=== PATIENT | male | born 1970 | race Caucasian/White ===

== ENCOUNTER 2020-11-13 21:08 | Inpatient (IN) | payer OTHER ==
[~2020-11-13] VITALS: Ht 170.1 cm; Wt 122.6 kg
[~2020-11-13 21:08] MED LIST: ATARAX,VISTARIL50 MG PO; ATARAX25 MG PO; ATARAX50 MG PO; CIPRO500 MG PO; CIPROFLOXACIN500 MG PO; CLARITIN10 MG PO; DARVOCET A500 51 TAB PO; DAYPRO600 M1 PO; DESYREL100 MG PO; FLAGYL500 MG PO; FLEXERIL5 MG PO; MEDROL DOSEPAK4 MG PO; MS CONTIN30 MG PO; SEPTRA DS 800 M1 TAB PO; TRAZADONE HYDR100 MG PO; VICODIN 5/500 505 MG PO; VICODIN ES 7501 TAB PO; VOLTAREN50 M1 PO; XANAX1 MG PO; ZESTRIL5 MG PO; ZITHROMAX Z PA250 MG PO
[2020-11-13 21:15] VITALS: BP 169/94
[2020-11-13 21:54] LABS: BASO % 0.3 % (0.0-1.0); EOS # 0.3 10*3/uL (0.0-0.4); EOS % 2.9 % (1.0-4.0); HEMATOCRIT 45.6 % (42.0-52.0); LYMPH # 1.1 10*3/uL (1.3-4.4); LYMPH % 11.6 % (27.0-41.0); MEAN CELL VOLUME 88.7 fl (80.0-94.0); MEAN CORPUSCULAR HGB 27.4 pg (27.0-31.0); MEAN CORPUSCULAR HGB CONC 30.9 g/dl (33.0-37.0); MEAN PLATELET VOLUME 9.8 fl (9.6-12.3); MONO # 0.7 10*3/uL (0.1-1.0); MONO % 8.1 % (3.0-9.0); NEUT % 76.4 % (47.0-73.0); PLATELET COUNT AUTOMATED 221 10*3/uL (130-400); RED BLOOD COUNT 5.14 10*6/uL (4.50-5.90); RED CELL DISTRI WIDTH 12.1 % (0-14.5); WHITE BLOOD COUNT 9.2 10*3/uL (4.8-10.8)
[2020-11-13 22:11] LABS: ALBUMIN 3.2 gm/dl (3.1-4.5); ALKALINE PHOSPHATASE 105 U/L (45-117); BUN 21 mg/dl (7-24); CHLORIDE 98 mmol/L (98-107); CREATININE 0.73 mg/dL (0.70-1.30); POTASSIUM 3.4 mmol/L (3.5-5.1); SGOT/AST 14 IU/L (3-35); SGPT/ALT 28 U/L (12-78); SODIUM 140 mmol/L (136-145); TOTAL PROTEIN 7.2 gm/dL (6.4-8.2)
[2020-11-13 22:14] LABS: TROPONIN I < 0.015 ng/ml (<0.045)
[2020-11-14 01:16] LABS: TROPONIN I < 0.015 ng/ml (<0.045)
[2020-11-14] MEDS ORDERED: COZAAR100 MG PO (03:21)
[2020-11-14] MEDS ORDERED: AZOR 10-20 MG1 EACH PO (03:22)
[2020-11-14] MEDS ORDERED: RESTORIL30 M1 PO (03:25)
[2020-11-14] MEDS ORDERED: ALBUTEROL2.5 MG/0.5 INH (03:26)
[2020-11-14 03:35] LABS: BASO % 0.4 % (0.0-1.0); EOS # 0.3 10*3/uL (0.0-0.4); EOS % 3.5 % (1.0-4.0); HEMATOCRIT 47.5 % (42.0-52.0); LYMPH # 1.3 10*3/uL (1.3-4.4); LYMPH % 12.8 % (27.0-41.0); MEAN CELL VOLUME 89.1 fl (80.0-94.0); MEAN CORPUSCULAR HGB CONC 30.3 g/dl (33.0-37.0); MEAN PLATELET VOLUME 10.1 fl (9.6-12.3); MONO # 0.8 10*3/uL (0.1-1.0); MONO % 7.7 % (3.0-9.0); NEUT # 7.4 10*3/uL (2.3-7.9); PLATELET COUNT AUTOMATED 246 10*3/uL (130-400); RED BLOOD COUNT 5.33 10*6/uL (4.50-5.90); RED CELL DISTRI WIDTH 12.1 % (0-14.5); WHITE BLOOD COUNT 9.8 10*3/uL (4.8-10.8)
[2020-11-14 03:41] LABS: ABG BASE EXCESS 10.9 mmol/L (-2.0-2.0); ARTERIAL BLOOD GAS PH 7.325 (7.35-7.45)
[2020-11-14 03:54] LABS: ALBUMIN 3.5 gm/dl (3.1-4.5); ALKALINE PHOSPHATASE 108 U/L (45-117); BUN 21 mg/dl (7-24); CHLORIDE 97 mmol/L (98-107); CHOLESTEROL 214 mg/dL (<200); HDL CHOLESTEROL 55 mg/dl (40-60); LDH 196 U/L (87-241); LDL CHOLESTEROL 116 mg/dL (9-159); POTASSIUM 3.4 mmol/L (3.5-5.1); SGOT/AST 18 IU/L (3-35); SGPT/ALT 29 U/L (12-78); SODIUM 138 mmol/L (136-145); TOTAL PROTEIN 7.6 gm/dL (6.4-8.2); TRIGLYCERIDES 217 mg/dl (<150); VLDL CHOLESTEROL 43 mg/dL (6-40)
[2020-11-14 03:56] LABS: CPK 290 U/L (39-308)
[2020-11-14 05:15] VITALS: BP 157/73
[2020-11-14 07:48] LABS: VITAMIN D, 25-HYDROXY 12.2 ng/mL (30-100)
[2020-11-14 07:49] LABS: FERRITIN 28.8 ng/mL (22.0-322.0)
[2020-11-14 08:30] VITALS: BP 148/78
[2020-11-14 12:47] VITALS: BP 158/64
[2020-11-14 16:00] VITALS: BP 144/85
[2020-11-14 20:00] VITALS: BP 153/84
[2020-11-14 20:34] LABS: BUN 23 mg/dl (7-24); CHLORIDE 94 mmol/L (98-107); CREATININE 1.06 mg/dL (0.70-1.30); SODIUM 137 mmol/L (136-145)
[2020-11-14 20:39] LABS: POTASSIUM 4.4 mmol/L (3.5-5.1)
[2020-11-14 20:44] LABS: TROPONIN I < 0.015 ng/ml (<0.045)
[2020-11-15] VITALS: BP 145/72
[2020-11-15] MEDS ORDERED: VENTOLIN 02.5 MG/3 M INH (00:12)
[2020-11-15] MEDS ORDERED: IPRATROPIU0.2 MG/1 M INH (00:12)
[2020-11-15 08:00] VITALS: BP 138/87
[2020-11-15 08:08] LABS: BUN 25 mg/dl (7-24); CHLORIDE 97 mmol/L (98-107); CREATININE 0.96 mg/dL (0.70-1.30); POTASSIUM 4.2 mmol/L (3.5-5.1); SODIUM 138 mmol/L (136-145)
[2020-11-15 08:54] LABS: ABG BASE EXCESS 11.9 mmol/L (-2.0-2.0); ARTERIAL BLOOD GAS PH 7.311 (7.35-7.45)
[2020-11-15 12:00] VITALS: BP 132/68
[2020-11-15 16:00] VITALS: BP 128/74
[2020-11-15 20:00] VITALS: BP 126/66
[2020-11-16] VITALS: BP 131/73
[2020-11-16 06:10] LABS: HEMATOCRIT 42.9 % (42.0-52.0); MEAN CELL VOLUME 89.2 fl (80.0-94.0); MEAN CORPUSCULAR HGB 27.4 pg (27.0-31.0); MEAN CORPUSCULAR HGB CONC 30.8 g/dl (33.0-37.0); MEAN PLATELET VOLUME 10.4 fl (9.6-12.3); PLATELET COUNT AUTOMATED 269 10*3/uL (130-400); RED BLOOD COUNT 4.81 10*6/uL (4.50-5.90); WHITE BLOOD COUNT 13.8 10*3/uL (4.8-10.8)
[2020-11-16 06:19] LABS: BUN 31 mg/dl (7-24); CHLORIDE 95 mmol/L (98-107); CREATININE 0.83 mg/dL (0.70-1.30); LDH 152 U/L (87-241); POTASSIUM 4.5 mmol/L (3.5-5.1); SODIUM 137 mmol/L (136-145)
[2020-11-16 07:06] LABS: PLATELET SUFFICIENCY NORMAL (NORMAL); TOTAL CELLS COUNTED 100 #CELLS
[2020-11-16 08:00] VITALS: BP 125/72
[2020-11-16 12:00] VITALS: BP 132/64
[2020-11-16 16:00] VITALS: BP 118/58
[2020-11-16 20:00] VITALS: BP 138/65
[2020-11-17] VITALS: BP 134/63
[2020-11-17 06:56] LABS: HEMATOCRIT 46.1 % (42.0-52.0); MEAN CELL VOLUME 88.5 fl (80.0-94.0); MEAN CORPUSCULAR HGB 27.8 pg (27.0-31.0); MEAN CORPUSCULAR HGB CONC 31.5 g/dl (33.0-37.0); MEAN PLATELET VOLUME 10.4 fl (9.6-12.3); PLATELET COUNT AUTOMATED 321 10*3/uL (130-400); RED BLOOD COUNT 5.21 10*6/uL (4.50-5.90); RED CELL DISTRI WIDTH 12.3 % (0-14.5); WHITE BLOOD COUNT 17.3 10*3/uL (4.8-10.8)
[2020-11-17 07:34] LABS: BUN 37 mg/dl (7-24); CHLORIDE 89 mmol/L (98-107); CREATININE 0.93 mg/dL (0.70-1.30); POTASSIUM 4.1 mmol/L (3.5-5.1); SODIUM 134 mmol/L (136-145)
[2020-11-17 08:00] VITALS: BP 124/58
[2020-11-17 08:46] LABS: PLATELET SUFFICIENCY NORMAL (NORMAL); STOMATOCYTE MANY; TOTAL CELLS COUNTED 100 #CELLS
[2020-11-17 12:00] VITALS: BP 135/66
[2020-11-17 12:07] LABS: ABG BASE EXCESS 14.4 mmol/L (-2.0-2.0); ARTERIAL BLOOD GAS PH 7.459 (7.35-7.45)
[2020-11-17 16:00] VITALS: BP 114/57
[2020-11-17 20:00] VITALS: BP 140/63
[2020-11-18] VITALS: BP 128/66
[2020-11-18 06:38] LABS: BASO % 0.1 % (0.0-1.0); LYMPH # 0.9 10*3/uL (1.3-4.4); MEAN CELL VOLUME 87.2 fl (80.0-94.0); MEAN CORPUSCULAR HGB 27.5 pg (27.0-31.0); MEAN CORPUSCULAR HGB CONC 31.5 g/dl (33.0-37.0); MEAN PLATELET VOLUME 10.5 fl (9.6-12.3); MONO # 0.9 10*3/uL (0.1-1.0); MONO % 5.1 % (3.0-9.0); NEUT # 15.7 10*3/uL (2.3-7.9); NEUT % 88.8 % (47.0-73.0); PLATELET COUNT AUTOMATED 340 10*3/uL (130-400); RED BLOOD COUNT 5.39 10*6/uL (4.50-5.90); RED CELL DISTRI WIDTH 12.5 % (0-14.5); WHITE BLOOD COUNT 17.7 10*3/uL (4.8-10.8)
[2020-11-18 06:56] LABS: ALBUMIN 3.4 gm/dl (3.1-4.5); ALKALINE PHOSPHATASE 83 U/L (45-117); BUN 41 mg/dl (7-24); CHLORIDE 91 mmol/L (98-107); CREATININE 0.95 mg/dL (0.70-1.30); POTASSIUM 4.1 mmol/L (3.5-5.1); SGOT/AST 10 IU/L (3-35); SGPT/ALT 30 U/L (12-78); SODIUM 132 mmol/L (136-145)
[2020-11-18 07:41] LABS: ABG BASE EXCESS 8.5 mmol/L (-2.0-2.0); ARTERIAL BLOOD GAS PH 7.406 (7.35-7.45)
[2020-11-18 08:00] VITALS: BP 127/69
[2020-11-18 12:00] VITALS: BP 134/59
[2020-11-18 16:00] VITALS: BP 129/65
[2020-11-18 20:00] VITALS: BP 111/52
[2020-11-19] VITALS: BP 122/61
[2020-11-19 06:51] LABS: BASO % 0.2 % (0.0-1.0); HEMATOCRIT 49.8 % (42.0-52.0); LYMPH # 0.8 10*3/uL (1.3-4.4); LYMPH % 4.4 % (27.0-41.0); MEAN CELL VOLUME 86.5 fl (80.0-94.0); MEAN CORPUSCULAR HGB 27.6 pg (27.0-31.0); MEAN CORPUSCULAR HGB CONC 31.9 g/dl (33.0-37.0); MEAN PLATELET VOLUME 10.7 fl (9.6-12.3); MONO # 0.8 10*3/uL (0.1-1.0); MONO % 4.4 % (3.0-9.0); NEUT # 16.9 10*3/uL (2.3-7.9); NEUT % 89.7 % (47.0-73.0); PLATELET COUNT AUTOMATED 346 10*3/uL (130-400); RED BLOOD COUNT 5.76 10*6/uL (4.50-5.90); RED CELL DISTRI WIDTH 12.4 % (0-14.5); WHITE BLOOD COUNT 18.8 10*3/uL (4.8-10.8)
[2020-11-19 07:14] LABS: CHLORIDE 94 mmol/L (98-107); POTASSIUM 4.5 mmol/L (3.5-5.1); SODIUM 131 mmol/L (136-145)
[2020-11-19 07:32] LABS: ALBUMIN 3.5 gm/dl (3.1-4.5); ALKALINE PHOSPHATASE 85 U/L (45-117); CREATININE 1.08 mg/dL (0.70-1.30); SGOT/AST 12 IU/L (3-35); SGPT/ALT 40 U/L (12-78); TOTAL PROTEIN 7.3 gm/dL (6.4-8.2)
[2020-11-19 07:33] LABS: BUN 53 mg/dl (7-24)
[2020-11-19 08:00] VITALS: BP 126/76
[2020-11-19 12:00] VITALS: BP 138/52
[2020-11-19 16:00] VITALS: BP 109/48
[2020-11-19] MEDS ORDERED: KLOR-CON M2020 ME1 PO ×2 (17:18)
[2020-11-19] MEDS ORDERED: DOXYCYCLINE100 MG PO ×2 (17:18)
[2020-11-19] MEDS ORDERED: PREDNISONE10 MG PO ×2 (17:18)
[2020-11-19] MEDS ORDERED: LASIX40 MG PO ×2 (17:18)
[2020-11-19 20:00] VITALS: BP 107/53
[2020-11-20] VITALS: BP 112/58
[2020-11-20 06:31] LABS: BASO % 0.2 % (0.0-1.0); EOS % 0.1 % (1.0-4.0); HEMATOCRIT 48.7 % (42.0-52.0); LYMPH # 0.9 10*3/uL (1.3-4.4); LYMPH % 4.4 % (27.0-41.0); MEAN CELL VOLUME 84.3 fl (80.0-94.0); MEAN CORPUSCULAR HGB 27.2 pg (27.0-31.0); MEAN CORPUSCULAR HGB CONC 32.2 g/dl (33.0-37.0); MEAN PLATELET VOLUME 10.9 fl (9.6-12.3); MONO % 4.8 % (3.0-9.0); NEUT # 17.7 10*3/uL (2.3-7.9); NEUT % 89.5 % (47.0-73.0); PLATELET COUNT AUTOMATED 360 10*3/uL (130-400); RED BLOOD COUNT 5.78 10*6/uL (4.50-5.90); RED CELL DISTRI WIDTH 12.2 % (0-14.5); WHITE BLOOD COUNT 19.8 10*3/uL (4.8-10.8)
[2020-11-20 07:01] LABS: ALBUMIN 3.4 gm/dl (3.1-4.5); ALKALINE PHOSPHATASE 77 U/L (45-117); CHLORIDE 95 mmol/L (98-107); CREATININE 1.14 mg/dL (0.70-1.30); POTASSIUM 4.2 mmol/L (3.5-5.1); SGOT/AST 5 IU/L (3-35); SGPT/ALT 43 U/L (12-78); SODIUM 133 mmol/L (136-145)
[2020-11-20 07:04] LABS: BUN 65 mg/dl (7-24)
[2020-11-20 08:00] VITALS: BP 150/67
== END 2020-11-20 09:25 | disposition other institution (70) | DRG 194 ==
LOC: ED 21:08 → EDHOLD 11-14 00:11 → 4E 11-14 00:11 → EDHOLD 11-14 00:15 → 4E 11-14 11:27 → 5E 11-15 17:22
PROVIDERS: Hospitalist; Internal Medicine; Internal Medicine Critical Care Medicine; Social Worker Clinical; Student in an Organized Health Care Education/Training Program; ADMIT Internal Medicine; ATTEND Internal Medicine
PROC: 5A09357 Assistance with Respiratory Ventilation, Less than 24 Consecutive Hours, Continuous Positive Airway Pressure (ICD-10-PCS; principal; 2020-11-16)
PROC: 5A09357 Assistance with Respiratory Ventilation, Less than 24 Consecutive Hours, Continuous Positive Airway Pressure (ICD-10-PCS; 2020-11-17)
DX: I11.0 Hypertensive heart disease with heart failure (principal); I50.23 Acute on chronic systolic (congestive) heart failure; J96.22 Acute and chronic respiratory failure with hypercapnia; J96.21 Acute and chronic respiratory failure with hypoxia; E83.51 Hypocalcemia; Y99.8 Other external cause status; J34.2 Deviated nasal septum; F43.10 Post-traumatic stress disorder, unspecified; G47.33 Obstructive sleep apnea (adult) (pediatric); R65.10 Systemic inflammatory response syndrome (SIRS) of non-infectious origin without acute organ dysfunction; Z20.822 Contact with and (suspected) exposure to COVID-19; E66.01 Morbid (severe) obesity due to excess calories; E87.2 Acidosis; I70.203 Unspecified atherosclerosis of native arteries of extremities, bilateral legs; I48.0 Paroxysmal atrial fibrillation; I47.2 Ventricular tachycardia; E87.6 Hypokalemia; R73.9 Hyperglycemia, unspecified; E44.0 Moderate protein-calorie malnutrition; J44.9 Chronic obstructive pulmonary disease, unspecified; F17.211 Nicotine dependence, cigarettes, in remission; S80.812A Abrasion, left lower leg, initial encounter; S80.811A Abrasion, right lower leg, initial encounter; E66.9 Obesity, unspecified; I87.8 Other specified disorders of veins; J44.1 Chronic obstructive pulmonary disease with (acute) exacerbation; E87.3 Alkalosis; K57.90 Diverticulosis of intestine, part unspecified, without perforation or abscess without bleeding; X58.XXXA Exposure to other specified factors, initial encounter; Z71.6 Tobacco abuse counseling; Z99.81 Dependence on supplemental oxygen; Z68.42 Body mass index [BMI] 45.0-49.9, adult; Z82.61 Family history of arthritis; Z82.49 Family history of ischemic heart disease and other diseases of the circulatory system; Z88.8 Allergy status to other drugs, medicaments and biological substances; Z79.899 Other long term (current) drug therapy; Z79.51 Long term (current) use of inhaled steroids; Y93.89 Activity, other specified; Y92.89 Other specified places as the place of occurrence of the external cause

== ENCOUNTER → 2020-11-21 | Outpatient (CLI) | payer OTHER ==
[~2020-11-21] MED LIST changes: +ALBUTEROL2.5 MG/0.5 INH; +ALDACTONE25 M1 PO; +AMLODIPINE BESY10 MG PO; +ASPIRIN CHEWABL81 MG PO; +ATORVASTATIN CA40 M1 PO; +AZOR 10-20 MG1 EACH PO; +BUMETANIDE1 MG PO; +CLOPIDOGREL75 MG PO; +COZAAR100 MG PO; +DOXYCYCLINE100 MG PO; +IPRATROPIU0.2 MG/1 M INH; +KLOR-CON M2020 ME1 PO; +LASIX40 MG PO; +LASIX80 MG PO; +PREDNISONE10 MG PO; +RESTORIL30 M1 PO; +VENTOLIN 02.5 MG/3 M INH
== END | disposition home or self-care (01) ==
LOC: COVID19 15:22
PROVIDERS: ATTEND Surgery Vascular Surgery
DX: Z01.812 Encounter for preprocedural laboratory examination (principal); Z20.822 Contact with and (suspected) exposure to COVID-19

== ENCOUNTER → 2020-12-08 | Outpatient (CLI) | payer OTHER | END | disposition home or self-care (01) | LOC: COVID19 13:54 | PROVIDERS: ATTEND Surgery Vascular Surgery | DX: Z01.812 Encounter for preprocedural laboratory examination (principal); Z20.822 Contact with and (suspected) exposure to COVID-19 ==

== ENCOUNTER → 2020-12-25 | Outpatient (CLI) | payer SELFPAY | END | disposition home or self-care (01) | LOC: COVID19 14:39 | PROVIDERS: ATTEND Surgery Vascular Surgery | DX: Z01.812 Encounter for preprocedural laboratory examination (principal); Z20.822 Contact with and (suspected) exposure to COVID-19 ==

== ENCOUNTER → 2021-01-17 | Outpatient (CLI) | payer OTHER | END | disposition home or self-care (01) | LOC: COVID19 15:03 | PROVIDERS: ATTEND Surgery Vascular Surgery | DX: Z01.812 Encounter for preprocedural laboratory examination (principal); Z20.822 Contact with and (suspected) exposure to COVID-19 ==

== ENCOUNTER → 2021-01-29 | Outpatient (CLI) | payer OTHER | END | disposition home or self-care (01) | LOC: COVID19 15:21 | PROVIDERS: ATTEND Surgery Vascular Surgery | DX: Z01.812 Encounter for preprocedural laboratory examination (principal); Z20.822 Contact with and (suspected) exposure to COVID-19 ==

== ENCOUNTER 2021-02-10 15:14 | Inpatient (IN) | payer OTHER ==
[~2021-02-10] VITALS: Ht 170.1 cm; Wt 130.3 kg
[~2021-02-10 15:14] MED LIST changes: -ALDACTONE25 M1 PO; -AMLODIPINE BESY10 MG PO; -ASPIRIN CHEWABL81 MG PO; -ATORVASTATIN CA40 M1 PO; -BUMETANIDE1 MG PO; -CLOPIDOGREL75 MG PO; -LASIX80 MG PO
[2021-02-10 15:24] VITALS: BP 140/81
[2021-02-10 15:25] VITALS: BP 140/82
[2021-02-10 16:11] LABS: BASO % 0.3 % (0.0-1.0); EOS # 0.1 10*3/uL (0.0-0.4); EOS % 1.8 % (1.0-4.0); HEMATOCRIT 39.3 % (42.0-52.0); LYMPH # 0.8 10*3/uL (1.3-4.4); LYMPH % 10.2 % (27.0-41.0); MEAN CELL VOLUME 85.8 fl (80.0-94.0); MEAN CORPUSCULAR HGB 27.7 pg (27.0-31.0); MEAN CORPUSCULAR HGB CONC 32.3 g/dl (33.0-37.0); MEAN PLATELET VOLUME 9.3 fl (9.6-12.3); MONO # 0.8 10*3/uL (0.1-1.0); MONO % 10.1 % (3.0-9.0); NEUT # 5.9 10*3/uL (2.3-7.9); NEUT % 76.7 % (47.0-73.0); PLATELET COUNT AUTOMATED 224 10*3/uL (130-400); RED BLOOD COUNT 4.58 10*6/uL (4.50-5.90); RED CELL DISTRI WIDTH 11.9 % (0-14.5); WHITE BLOOD COUNT 7.6 10*3/uL (4.8-10.8)
[2021-02-10 16:27] LABS: ALBUMIN 3.1 gm/dl (3.1-4.5); ALKALINE PHOSPHATASE 88 U/L (45-117); BUN 18 mg/dl (7-24); CHLORIDE 99 mmol/L (98-107); CREATININE 1.01 mg/dL (0.70-1.30); SGOT/AST 18 IU/L (3-35); SGPT/ALT 32 U/L (12-78); SODIUM 138 mmol/L (136-145); TOTAL PROTEIN 7.1 gm/dL (6.4-8.2)
[2021-02-10 16:28] LABS: TROPONIN I < 0.015 ng/ml (<0.045)
[2021-02-10] MEDS ORDERED: ASPIRIN CHEWABL81 MG PO (17:28)
[2021-02-10] MEDS ORDERED: LASIX80 MG PO (17:28)
[2021-02-10 18:20] VITALS: BP 140/80
[2021-02-10 18:27] VITALS: BP 133/65
[2021-02-10] MEDS ORDERED: CLOPIDOGREL75 MG PO (18:49)
[2021-02-10] MEDS ORDERED: ALDACTONE25 M1 PO (18:49)
[2021-02-10 20:00] VITALS: BP 121/68
[2021-02-11] VITALS: BP 127/66
[2021-02-11 08:00] VITALS: BP 129/65
[2021-02-11 12:00] VITALS: BP 132/75
[2021-02-11 16:00] VITALS: BP 122/64; BP 125/56
[2021-02-11 20:00] VITALS: BP 116/57
[2021-02-12 00:44] VITALS: BP 116/68
[2021-02-12 06:08] LABS: BUN 17 mg/dl (7-24); CHLORIDE 99 mmol/L (98-107); CREATININE 0.94 mg/dL (0.70-1.30); POTASSIUM 3.8 mmol/L (3.5-5.1); SODIUM 136 mmol/L (136-145)
[2021-02-12 07:56] VITALS: BP 110/64
[2021-02-12 12:32] VITALS: BP 103/56
[2021-02-12 16:00] VITALS: BP 129/51
[2021-02-12 20:00] VITALS: BP 123/57
[2021-02-13] VITALS: BP 113/55
[2021-02-13 06:31] LABS: CHLORIDE 98 mmol/L (98-107); CREATININE 1.19 mg/dL (0.70-1.30); POTASSIUM 4.2 mmol/L (3.5-5.1); SODIUM 137 mmol/L (136-145)
[2021-02-13 06:46] LABS: BUN 27 mg/dl (7-24)
[2021-02-13 08:00] VITALS: BP 122/76
[2021-02-13 12:00] VITALS: BP 134/56
[2021-02-13 16:00] VITALS: BP 114/55
[2021-02-13 20:00] VITALS: BP 142/60
[2021-02-14] VITALS: BP 126/54
[2021-02-14 06:52] LABS: BUN 31 mg/dl (7-24); CHLORIDE 100 mmol/L (98-107); CREATININE 1.09 mg/dL (0.70-1.30); POTASSIUM 5.2 mmol/L (3.5-5.1); SODIUM 136 mmol/L (136-145)
[2021-02-14 08:00] VITALS: BP 130/72; BP 132/74
[2021-02-14 12:00] VITALS: BP 130/74
[2021-02-14 16:00] VITALS: BP 124/71
[2021-02-14 20:00] VITALS: BP 153/67
[2021-02-15] VITALS: BP 120/71
[2021-02-15 06:17] LABS: BUN 34 mg/dl (7-24); CHLORIDE 98 mmol/L (98-107); POTASSIUM 4.8 mmol/L (3.5-5.1); SODIUM 134 mmol/L (136-145)
[2021-02-15 08:00] VITALS: BP 127/68
[2021-02-15 12:00] VITALS: BP 123/81
[2021-02-15 16:00] VITALS: BP 115/52
[2021-02-15 20:00] VITALS: BP 125/83
[2021-02-16] VITALS: BP 113/64
[2021-02-16 06:29] LABS: BUN 40 mg/dl (7-24); CHLORIDE 96 mmol/L (98-107); CREATININE 1.28 mg/dL (0.70-1.30); POTASSIUM 5.2 mmol/L (3.5-5.1); SODIUM 135 mmol/L (136-145)
[2021-02-16 08:00] VITALS: BP 134/66
[2021-02-16 12:00] VITALS: BP 124/53
[2021-02-16 20:00] VITALS: BP 117/59
[2021-02-17] VITALS: BP 131/71
[2021-02-17 05:48] LABS: BUN 42 mg/dl (7-24); CHLORIDE 96 mmol/L (98-107); CREATININE 1.42 mg/dL (0.70-1.30); SODIUM 135 mmol/L (136-145)
[2021-02-17 06:10] LABS: MEAN CELL VOLUME 86.1 fl (80.0-94.0); MEAN CORPUSCULAR HGB 27.3 pg (27.0-31.0); MEAN CORPUSCULAR HGB CONC 31.7 g/dl (33.0-37.0); MEAN PLATELET VOLUME 9.9 fl (9.6-12.3); PLATELET COUNT AUTOMATED 456 10*3/uL (130-400); RED BLOOD COUNT 4.76 10*6/uL (4.50-5.90); RED CELL DISTRI WIDTH 11.9 % (0-14.5); WHITE BLOOD COUNT 23.7 10*3/uL (4.8-10.8)
[2021-02-17 06:47] LABS: ATYPICAL LYMPHS 1 % (0-0); PLATELET SUFFICIENCY HIGH (NORMAL); TOTAL CELLS COUNTED 100 #CELLS
[2021-02-17 08:00] VITALS: BP 145/81
[2021-02-17 08:31] LABS: HEMATOCRIT 44.6 % (42.0-52.0); MEAN CELL VOLUME 85.3 fl (80.0-94.0); MEAN CORPUSCULAR HGB 27.5 pg (27.0-31.0); MEAN CORPUSCULAR HGB CONC 32.3 g/dl (33.0-37.0); MEAN PLATELET VOLUME 9.8 fl (9.6-12.3); PLATELET COUNT AUTOMATED 496 10*3/uL (130-400); RED BLOOD COUNT 5.23 10*6/uL (4.50-5.90); RED CELL DISTRI WIDTH 11.9 % (0-14.5); WHITE BLOOD COUNT 26.9 10*3/uL (4.8-10.8)
[2021-02-17 09:00] LABS: ATYPICAL LYMPHS 1 % (0-0); TOTAL CELLS COUNTED 100 #CELLS
[2021-02-17 09:01] LABS: PLATELET SUFFICIENCY HIGH (NORMAL); VACUOLATION OF NEUTROPHILS SLIGHT
[2021-02-17] MEDS ORDERED: BUMETANIDE1 MG PO (09:11)
[2021-02-17] MEDS ORDERED: ATORVASTATIN CA40 M1 PO (09:11)
[2021-02-17] MEDS ORDERED: AMLODIPINE BESY10 MG PO (09:11)
[2021-02-17] MEDS ORDERED: PREDNISONE10 MG PO (09:11)
[2021-02-17 12:00] VITALS: BP 138/78
== END 2021-02-17 12:12 | disposition home or self-care (01) | DRG 720 ==
LOC: ED 15:14 → EDHOLD 17:13 → 4E 17:13
PROVIDERS: Family Medicine; Internal Medicine; Internal Medicine Cardiovascular Disease; Physician Assistant; Student in an Organized Health Care Education/Training Program; ADMIT Student in an Organized Health Care Education/Training Program; ATTEND Student in an Organized Health Care Education/Training Program
PROC: 5A09357 Assistance with Respiratory Ventilation, Less than 24 Consecutive Hours, Continuous Positive Airway Pressure (ICD-10-PCS; principal; 2021-02-12)
PROC: 5A09357 Assistance with Respiratory Ventilation, Less than 24 Consecutive Hours, Continuous Positive Airway Pressure (ICD-10-PCS; 2021-02-15)
DX: A41.9 Sepsis, unspecified organism (principal); I50.23 Acute on chronic systolic (congestive) heart failure; J15.6 Pneumonia due to other Gram-negative bacteria; J44.1 Chronic obstructive pulmonary disease with (acute) exacerbation; I11.0 Hypertensive heart disease with heart failure; E87.2 Acidosis; E44.0 Moderate protein-calorie malnutrition; I70.203 Unspecified atherosclerosis of native arteries of extremities, bilateral legs; D64.9 Anemia, unspecified; G47.33 Obstructive sleep apnea (adult) (pediatric); J96.11 Chronic respiratory failure with hypoxia; J44.0 Chronic obstructive pulmonary disease with (acute) lower respiratory infection; K57.90 Diverticulosis of intestine, part unspecified, without perforation or abscess without bleeding; E66.01 Morbid (severe) obesity due to excess calories; F43.10 Post-traumatic stress disorder, unspecified; E87.6 Hypokalemia; E83.51 Hypocalcemia; R65.20 Severe sepsis without septic shock; E87.5 Hyperkalemia; R73.9 Hyperglycemia, unspecified; Z79.82 Long term (current) use of aspirin; Z79.899 Other long term (current) drug therapy; Z82.49 Family history of ischemic heart disease and other diseases of the circulatory system; Z83.3 Family history of diabetes mellitus; Z99.81 Dependence on supplemental oxygen; Z80.9 Family history of malignant neoplasm, unspecified; Z82.61 Family history of arthritis; Z68.42 Body mass index [BMI] 45.0-49.9, adult

== ENCOUNTER → 2021-03-09 | Outpatient (CLI) | payer OTHER ==
[~2021-03-09] MED LIST changes: +ALDACTONE25 M1 PO; +AMLODIPINE BESY10 MG PO; +ASPIRIN CHEWABL81 MG PO; +ATORVASTATIN CA40 M1 PO; +BUMETANIDE1 MG PO; +CLOPIDOGREL75 MG PO; +LASIX80 MG PO
[2021-03-09 15:37] LABS: HEMATOCRIT 38.8 % (42.0-52.0); MEAN CELL VOLUME 86.8 fl (80.0-94.0); MEAN CORPUSCULAR HGB 27.5 pg (27.0-31.0); MEAN CORPUSCULAR HGB CONC 31.7 g/dl (33.0-37.0); MEAN PLATELET VOLUME 10.3 fl (9.6-12.3); PLATELET COUNT AUTOMATED 202 10*3/uL (130-400); RED BLOOD COUNT 4.47 10*6/uL (4.50-5.90); RED CELL DISTRI WIDTH 12.5 % (0-14.5); WHITE BLOOD COUNT 9.6 10*3/uL (4.8-10.8)
[2021-03-09 15:57] LABS: ALBUMIN 3.3 gm/dl (3.1-4.5); ALKALINE PHOSPHATASE 88 U/L (45-117); BUN 19 mg/dl (7-24); CHLORIDE 97 mmol/L (98-107); CREATININE 1.17 mg/dL (0.70-1.30); POTASSIUM 3.5 mmol/L (3.5-5.1); SGOT/AST 18 IU/L (3-35); SODIUM 137 mmol/L (136-145); TOTAL PROTEIN 6.8 gm/dL (6.4-8.2)
[2021-03-09 16:04] LABS: BASOPHILS 1 % (0-1); PLATELET SUFFICIENCY NORMAL (NORMAL); TOTAL CELLS COUNTED 100 #CELLS
[2021-03-09 16:07] LABS: SGPT/ALT 35 U/L (12-78)
== END | disposition home or self-care (01) ==
LOC: RESCLI 00:32
PROVIDERS: Internal Medicine; ATTEND Internal Medicine
DX: I11.0 Hypertensive heart disease with heart failure (principal); I50.32 Chronic diastolic (congestive) heart failure; J44.9 Chronic obstructive pulmonary disease, unspecified; E78.2 Mixed hyperlipidemia; E55.9 Vitamin D deficiency, unspecified; E87.6 Hypokalemia; F41.9 Anxiety disorder, unspecified; F51.01 Primary insomnia; I73.9 Peripheral vascular disease, unspecified; G47.33 Obstructive sleep apnea (adult) (pediatric); Z79.82 Long term (current) use of aspirin; Z79.899 Other long term (current) drug therapy; Z87.891 Personal history of nicotine dependence; Z88.8 Allergy status to other drugs, medicaments and biological substances

== ENCOUNTER 2021-06-04 02:05 | Inpatient (IN) | payer MEDICAID ==
[~2021-06-04] VITALS: Ht 170.1 cm; Wt 120.3 kg
[~2021-06-04 02:05] MED LIST changes: +ADVIL COLD-SIN1 EACH PO; +ARTIFICIAL TEA1 EACH OP; +ARTIFICIALS TEA30 ML OPH; +BUMETANIDE2 MG PO; +IBUPROFEN400 MG PO; +LEVOFLOXACIN750 M2 PO; +LINZESS145 MC1 PO; +POTASSIUM CHLO20 ME4 PO
[2021-06-04 02:11] VITALS: BP 148/88
[2021-06-04 02:41] LABS: BASO % 0.2 % (0.0-1.0); EOS # 0.3 10*3/uL (0.0-0.4); EOS % 2.9 % (1.0-4.0); HEMATOCRIT 41.5 % (42.0-52.0); LYMPH # 1.2 10*3/uL (1.3-4.4); LYMPH % 11.4 % (27.0-41.0); MEAN CORPUSCULAR HGB 26.5 pg (27.0-31.0); MEAN CORPUSCULAR HGB CONC 31.6 g/dl (33.0-37.0); MEAN PLATELET VOLUME 10.1 fl (9.6-12.3); MONO # 0.9 10*3/uL (0.1-1.0); MONO % 8.4 % (3.0-9.0); NEUT # 8.2 10*3/uL (2.3-7.9); NEUT % 76.5 % (47.0-73.0); PLATELET COUNT AUTOMATED 279 10*3/uL (130-400); RED BLOOD COUNT 4.94 10*6/uL (4.50-5.90); RED CELL DISTRI WIDTH 12.8 % (0-14.5); WHITE BLOOD COUNT 10.8 10*3/uL (4.8-10.8)
[2021-06-04 03:00] LABS: ALBUMIN 3.8 gm/dl (3.1-4.5); ALKALINE PHOSPHATASE 123 U/L (45-117); BUN 16 mg/dl (7-24); CHLORIDE 99 mmol/L (98-107); CREATININE 0.95 mg/dL (0.70-1.30); POTASSIUM 3.1 mmol/L (3.5-5.1); SGOT/AST 21 IU/L (3-35); SGPT/ALT 33 U/L (12-78); SODIUM 138 mmol/L (136-145); TOTAL PROTEIN 7.7 gm/dL (6.4-8.2)
[2021-06-04 03:01] LABS: TROPONIN I < 0.015 ng/ml (<0.045)
[2021-06-04 03:08] LABS: BILIRUBIN 1+ (Negative); BLOOD 3+ (Negative); CLARITY Turbid (Clear); COLOR Dark Yellow (Yellow); GLUCOSE Negative (Negative); KETONE Negative (Negative); LEUKO ESTERASE 3+ (Negative); NITRITE Positive (Negative)
[2021-06-04 03:43] LABS: WBC TNTC wbc/hpf (0-5)
[2021-06-04] MEDS ORDERED: PREDNISONE20 M1 PO ×2 (05:05)
[2021-06-04] MEDS ORDERED: OMNICEF300 MG PO ×2 (05:05)
[2021-06-04 05:25] VITALS: BP 148/82
[2021-06-04 07:27] VITALS: BP 119/76
[2021-06-04 12:00] VITALS: BP 144/74
[2021-06-04 16:00] VITALS: BP 138/71
[2021-06-04 20:00] VITALS: BP 170/86
[2021-06-05] VITALS: BP 1231/57
[2021-06-05 06:08] LABS: ALBUMIN 3.3 gm/dl (3.1-4.5); ALKALINE PHOSPHATASE 109 U/L (45-117); BASO % 0.2 % (0.0-1.0); BUN 22 mg/dl (7-24); CHLORIDE 100 mmol/L (98-107); CREATININE 0.88 mg/dL (0.70-1.30); HEMATOCRIT 39.2 % (42.0-52.0); LYMPH # 0.8 10*3/uL (1.3-4.4); MEAN CELL VOLUME 83.8 fl (80.0-94.0); MEAN CORPUSCULAR HGB 26.5 pg (27.0-31.0); MEAN CORPUSCULAR HGB CONC 31.6 g/dl (33.0-37.0); MEAN PLATELET VOLUME 10.6 fl (9.6-12.3); MONO # 0.6 10*3/uL (0.1-1.0); MONO % 4.7 % (3.0-9.0); NEUT # 11.6 10*3/uL (2.3-7.9); NEUT % 88.5 % (47.0-73.0); PLATELET COUNT AUTOMATED 321 10*3/uL (130-400); POTASSIUM 3.8 mmol/L (3.5-5.1); RED BLOOD COUNT 4.68 10*6/uL (4.50-5.90); RED CELL DISTRI WIDTH 12.9 % (0-14.5); SGOT/AST 18 IU/L (3-35); SGPT/ALT 29 U/L (12-78); SODIUM 138 mmol/L (136-145); WHITE BLOOD COUNT 13.1 10*3/uL (4.8-10.8)
[2021-06-05 08:00] VITALS: BP 160/42
[2021-06-05 09:16] VITALS: BP 110/50
[2021-06-05 11:30] LABS: ABG BASE EXCESS 9.5 mmol/L (-2.0-2.0); ARTERIAL BLOOD GAS PH 7.399 (7.35-7.45); ARTERIAL BLOOD GAS PO2 68.7 (80-90)
[2021-06-05 12:00] VITALS: BP 134/67
[2021-06-05 16:00] VITALS: BP 131/75
[2021-06-05 20:00] VITALS: BP 120/76
[2021-06-06] VITALS: BP 131/66
[2021-06-06 08:00] VITALS: BP 115/65
[2021-06-06 12:00] VITALS: BP 140/85
[2021-06-06 13:21] LABS: HEMATOCRIT 44.3 % (42.0-52.0); MEAN CELL VOLUME 84.1 fl (80.0-94.0); MEAN CORPUSCULAR HGB 26.8 pg (27.0-31.0); MEAN CORPUSCULAR HGB CONC 31.8 g/dl (33.0-37.0); MEAN PLATELET VOLUME 9.9 fl (9.6-12.3); PLATELET COUNT AUTOMATED 391 10*3/uL (130-400); RED BLOOD COUNT 5.27 10*6/uL (4.50-5.90); RED CELL DISTRI WIDTH 13.2 % (0-14.5); WHITE BLOOD COUNT 17.8 10*3/uL (4.8-10.8)
[2021-06-06 13:41] LABS: PLATELET SUFFICIENCY NORMAL (NORMAL); TOTAL CELLS COUNTED 100 #CELLS
[2021-06-06 13:48] LABS: BUN 29 mg/dl (7-24); CHLORIDE 95 mmol/L (98-107); CREATININE 1.02 mg/dL (0.70-1.30); POTASSIUM 4.2 mmol/L (3.5-5.1); SODIUM 137 mmol/L (136-145)
[2021-06-06 16:00] VITALS: BP 97/57
[2021-06-06 20:00] VITALS: BP 140/68
[2021-06-07] VITALS: BP 127/73
[2021-06-07 08:00] VITALS: BP 107/64
[2021-06-07 12:00] VITALS: BP 137/67
[2021-06-07 16:00] VITALS: BP 132/73
[2021-06-07 20:00] VITALS: BP 124/63
[2021-06-08] VITALS: BP 126/70
[2021-06-08 08:00] VITALS: BP 117/59
[2021-06-08 12:00] VITALS: BP 130/75
[2021-06-08] MEDS ORDERED: PREDNISONE10 MG PO (12:41)
[2021-06-08] MEDS ORDERED: DOXYCYCLINE100 M3 PO (12:41)
[2021-06-08] MEDS ORDERED: LINZESS145 MC1 PO (13:40)
== END 2021-06-08 14:15 | disposition home or self-care (01) | DRG 720 ==
LOC: ED 02:05 → 4E 09:28 → EDHOLD 09:28 → 4E 13:45
PROVIDERS: Emergency Medicine; Internal Medicine; Internal Medicine Critical Care Medicine; Registered Nurse; ADMIT Internal Medicine; ATTEND Internal Medicine
PROC: BD1BYZZ Fluoroscopy of Mouth/Oropharynx using Other Contrast (ICD-10-PCS; 2021-06-05)
PROC: 5A09357 Assistance with Respiratory Ventilation, Less than 24 Consecutive Hours, Continuous Positive Airway Pressure (ICD-10-PCS; principal; 2021-06-06)
PROC: 5A09357 Assistance with Respiratory Ventilation, Less than 24 Consecutive Hours, Continuous Positive Airway Pressure (ICD-10-PCS; 2021-06-08)
DX: A41.9 Sepsis, unspecified organism (principal); J69.0 Pneumonitis due to inhalation of food and vomit; J96.21 Acute and chronic respiratory failure with hypoxia; N32.1 Vesicointestinal fistula; F43.10 Post-traumatic stress disorder, unspecified; E66.01 Morbid (severe) obesity due to excess calories; R65.20 Severe sepsis without septic shock; R73.9 Hyperglycemia, unspecified; D64.9 Anemia, unspecified; I11.0 Hypertensive heart disease with heart failure; E87.6 Hypokalemia; G47.33 Obstructive sleep apnea (adult) (pediatric); J44.1 Chronic obstructive pulmonary disease with (acute) exacerbation; R33.9 Retention of urine, unspecified; R91.1 Solitary pulmonary nodule; J20.9 Acute bronchitis, unspecified; J96.22 Acute and chronic respiratory failure with hypercapnia; K57.90 Diverticulosis of intestine, part unspecified, without perforation or abscess without bleeding; N39.0 Urinary tract infection, site not specified; B96.20 Unspecified Escherichia coli [E. coli] as the cause of diseases classified elsewhere; Z96.1 Presence of intraocular lens; J44.0 Chronic obstructive pulmonary disease with (acute) lower respiratory infection; R13.10 Dysphagia, unspecified; I50.32 Chronic diastolic (congestive) heart failure; Z99.81 Dependence on supplemental oxygen; Z88.1 Allergy status to other antibiotic agents; Z98.1 Arthrodesis status; Z87.891 Personal history of nicotine dependence; Z82.49 Family history of ischemic heart disease and other diseases of the circulatory system; Z80.8 Family history of malignant neoplasm of other organs or systems; Z83.3 Family history of diabetes mellitus; Z82.61 Family history of arthritis; Z79.82 Long term (current) use of aspirin; Z79.899 Other long term (current) drug therapy; Z79.02 Long term (current) use of antithrombotics/antiplatelets; Z98.49 Cataract extraction status, unspecified eye; Z68.41 Body mass index [BMI] 40.0-44.9, adult; J15.6 Pneumonia due to other Gram-negative bacteria

== ENCOUNTER → 2021-06-26 | Outpatient (CLI) | payer MEDICAID ==
[~2021-06-26] MED LIST changes: +DOXYCYCLINE100 M3 PO; +OMNICEF300 MG PO; +PREDNISONE20 M1 PO
[2021-06-26 14:39] LABS: BASO % 0.3 % (0.0-1.0); EOS # 0.3 10*3/uL (0.0-0.4); EOS % 2.6 % (1.0-4.0); HEMATOCRIT 43.3 % (42.0-52.0); LYMPH # 1.3 10*3/uL (1.3-4.4); LYMPH % 10.5 % (27.0-41.0); MEAN CELL VOLUME 84.9 fl (80.0-94.0); MEAN CORPUSCULAR HGB 26.3 pg (27.0-31.0); MEAN CORPUSCULAR HGB CONC 30.9 g/dl (33.0-37.0); MEAN PLATELET VOLUME 9.9 fl (9.6-12.3); MONO # 0.8 10*3/uL (0.1-1.0); MONO % 6.7 % (3.0-9.0); NEUT # 9.4 10*3/uL (2.3-7.9); NEUT % 79.5 % (47.0-73.0); PLATELET COUNT AUTOMATED 219 10*3/uL (130-400); RED CELL DISTRI WIDTH 12.8 % (0-14.5); WHITE BLOOD COUNT 11.9 10*3/uL (4.8-10.8)
[2021-06-26 14:54] LABS: ALBUMIN 3.4 gm/dl (3.1-4.5); ALKALINE PHOSPHATASE 109 U/L (45-117); BUN 18 mg/dl (7-24); CHLORIDE 96 mmol/L (98-107); CREATININE 0.96 mg/dL (0.70-1.30); POTASSIUM 3.2 mmol/L (3.5-5.1); SGOT/AST 18 IU/L (3-35); SGPT/ALT 41 U/L (12-78); SODIUM 138 mmol/L (136-145); TOTAL PROTEIN 7.3 gm/dL (6.4-8.2)
== END | disposition home or self-care (01) ==
LOC: RESCLI 01:09
PROVIDERS: Student in an Organized Health Care Education/Training Program; ATTEND Internal Medicine
DX: J44.9 Chronic obstructive pulmonary disease, unspecified (principal); J18.9 Pneumonia, unspecified organism; I11.0 Hypertensive heart disease with heart failure; I50.32 Chronic diastolic (congestive) heart failure; I73.9 Peripheral vascular disease, unspecified; F51.01 Primary insomnia; E78.2 Mixed hyperlipidemia; E55.9 Vitamin D deficiency, unspecified; F41.9 Anxiety disorder, unspecified; N32.1 Vesicointestinal fistula; R91.1 Solitary pulmonary nodule; Z88.8 Allergy status to other drugs, medicaments and biological substances; Z87.891 Personal history of nicotine dependence; Z79.82 Long term (current) use of aspirin; Z79.899 Other long term (current) drug therapy

== ENCOUNTER 2021-08-17 13:16 | Inpatient (IN) | payer OTHER ==
[~2021-08-17] VITALS: Ht 167.6 cm; Wt 115.2 kg
[2021-08-17 13:38] VITALS: BP 150/80
[2021-08-17 14:14] VITALS: BP 140/70
[2021-08-17 14:21] LABS: HEMATOCRIT 42.4 % (42.0-52.0); MEAN CELL VOLUME 87.2 fl (80.0-94.0); MEAN CORPUSCULAR HGB 25.9 pg (27.0-31.0); MEAN CORPUSCULAR HGB CONC 29.7 g/dl (33.0-37.0); MEAN PLATELET VOLUME 9.8 fl (9.6-12.3); PLATELET COUNT AUTOMATED 289 10*3/uL (130-400); RED BLOOD COUNT 4.86 10*6/uL (4.50-5.90); RED CELL DISTRI WIDTH 13.6 % (0-14.5); WHITE BLOOD COUNT 18.9 10*3/uL (4.8-10.8)
[2021-08-17 14:33] LABS: ACT PARTIAL THROMBO TIME 32.6 SECONDS (20.0-32.1)
[2021-08-17 14:44] LABS: PLATELET SUFFICIENCY NORMAL (NORMAL); TOTAL CELLS COUNTED 100 #CELLS
[2021-08-17 14:45] LABS: OVALOCYTES FEW
[2021-08-17 14:50] LABS: ALKALINE PHOSPHATASE 126 U/L (45-117); BUN 14 mg/dl (7-24); SGOT/AST 12 IU/L (3-35); SGPT/ALT 25 U/L (12-78); TOTAL PROTEIN 7.9 gm/dL (6.4-8.2)
[2021-08-17 14:53] LABS: TROPONIN I < 0.015 ng/ml (<0.045)
[2021-08-17 15:38] LABS: CHLORIDE 98 mmol/L (98-107); POTASSIUM 3.7 mmol/L (3.5-5.1); SODIUM 141 mmol/L (136-145)
[2021-08-17 15:40] VITALS: BP 138/60
[2021-08-17 16:10] LABS: ABG BASE EXCESS 7.8 mmol/L (-2.0-2.0); ARTERIAL BLOOD GAS PO2 66.6 (80-90)
[2021-08-17 16:17] LABS: ARTERIAL BLOOD GAS PH 7.164 (7.35-7.45)
[2021-08-17 17:00] VITALS: BP 147/75
[2021-08-17] MEDS ORDERED: VITAMIN D350 MC2 PO (17:59)
[2021-08-17 20:00] VITALS: BP 159/93
[2021-08-17 23:16] LABS: ABG BASE EXCESS 6.5 mmol/L (-2.0-2.0); ARTERIAL BLOOD GAS PH 7.213 (7.35-7.45); ARTERIAL BLOOD GAS PO2 76.8 (80-90)
[2021-08-18] VITALS: BP 136/92
[2021-08-18 03:14] LABS: BILIRUBIN Negative (Negative); BLOOD 3+ (Negative); CLARITY Turbid (Clear); COLOR Yellow (Yellow); GLUCOSE Negative (Negative); KETONE Trace (Negative); LEUKO ESTERASE 3+ (Negative); NITRITE Positive (Negative); PH 6.5 (4.5-8.0)
[2021-08-18 03:31] LABS: BACTERIA 3+; RBC TNTC rbc/hpf (0-2); WBC TNTC wbc/hpf (0-5)
[2021-08-18 06:18] LABS: BASO # 0.1 10*3/uL (0.0-0.1); BASO % 0.3 % (0.0-1.0); LYMPH % 6.8 % (27.0-41.0); MEAN CELL VOLUME 86.4 fl (80.0-94.0); MEAN CORPUSCULAR HGB 25.7 pg (27.0-31.0); MEAN CORPUSCULAR HGB CONC 29.8 g/dl (33.0-37.0); MEAN PLATELET VOLUME 10.1 fl (9.6-12.3); MONO # 0.9 10*3/uL (0.1-1.0); MONO % 5.8 % (3.0-9.0); NEUT # 13.2 10*3/uL (2.3-7.9); NEUT % 85.7 % (47.0-73.0); PLATELET COUNT AUTOMATED 355 10*3/uL (130-400); RED BLOOD COUNT 4.86 10*6/uL (4.50-5.90); RED CELL DISTRI WIDTH 13.3 % (0-14.5); WHITE BLOOD COUNT 15.4 10*3/uL (4.8-10.8)
[2021-08-18 06:36] LABS: ALBUMIN 2.8 gm/dl (3.1-4.5); ALKALINE PHOSPHATASE 121 U/L (45-117); BUN 14 mg/dl (7-24); CHLORIDE 98 mmol/L (98-107); CREATININE 0.82 mg/dL (0.70-1.30); POTASSIUM 3.7 mmol/L (3.5-5.1); SGOT/AST 12 IU/L (3-35); SGPT/ALT 23 U/L (12-78); SODIUM 141 mmol/L (136-145); TOTAL PROTEIN 7.8 gm/dL (6.4-8.2)
[2021-08-18 08:00] VITALS: BP 134/71
[2021-08-18 12:00] VITALS: BP 152/85
[2021-08-18 16:00] VITALS: BP 147/62
[2021-08-18 20:00] VITALS: BP 160/80
[2021-08-18] MEDS ORDERED: TRAZODONE100 MG PO (21:44)
[2021-08-19] VITALS: BP 174/79
[2021-08-19 06:49] LABS: BASO # 0.1 10*3/uL (0.0-0.1); BASO % 0.4 % (0.0-1.0); EOS # 0.1 10*3/uL (0.0-0.4); EOS % 0.5 % (1.0-4.0); HEMATOCRIT 44.4 % (42.0-52.0); LYMPH % 12.5 % (27.0-41.0); MEAN CELL VOLUME 85.1 fl (80.0-94.0); MEAN CORPUSCULAR HGB 25.7 pg (27.0-31.0); MEAN CORPUSCULAR HGB CONC 30.2 g/dl (33.0-37.0); MEAN PLATELET VOLUME 9.9 fl (9.6-12.3); MONO # 1.4 10*3/uL (0.1-1.0); MONO % 8.6 % (3.0-9.0); NEUT # 12.2 10*3/uL (2.3-7.9); NEUT % 76.7 % (47.0-73.0); PLATELET COUNT AUTOMATED 361 10*3/uL (130-400); RED BLOOD COUNT 5.22 10*6/uL (4.50-5.90); RED CELL DISTRI WIDTH 13.2 % (0-14.5); WHITE BLOOD COUNT 15.9 10*3/uL (4.8-10.8)
[2021-08-19 07:07] LABS: ALBUMIN 2.8 gm/dl (3.1-4.5); ALKALINE PHOSPHATASE 113 U/L (45-117); BUN 19 mg/dl (7-24); CHLORIDE 97 mmol/L (98-107); CREATININE 0.86 mg/dL (0.70-1.30); POTASSIUM 3.3 mmol/L (3.5-5.1); SGOT/AST 20 IU/L (3-35); SGPT/ALT 27 U/L (12-78); SODIUM 139 mmol/L (136-145); TOTAL PROTEIN 7.6 gm/dL (6.4-8.2)
[2021-08-19 08:00] VITALS: BP 149/74
[2021-08-19 12:00] VITALS: BP 141/84
[2021-08-19 16:00] VITALS: BP 152/108
[2021-08-19 20:00] VITALS: BP 154/83
[2021-08-20] VITALS: BP 152/84
[2021-08-20 06:08] LABS: BUN 20 mg/dl (7-24); CHLORIDE 92 mmol/L (98-107); CREATININE 0.86 mg/dL (0.70-1.30); POTASSIUM 2.8 mmol/L (3.5-5.1); SODIUM 137 mmol/L (136-145)
[2021-08-20 06:13] LABS: HEMATOCRIT 47.7 % (42.0-52.0); MEAN CELL VOLUME 84.4 fl (80.0-94.0); MEAN CORPUSCULAR HGB 25.5 pg (27.0-31.0); MEAN CORPUSCULAR HGB CONC 30.2 g/dl (33.0-37.0); MEAN PLATELET VOLUME 9.9 fl (9.6-12.3); PLATELET COUNT AUTOMATED 382 10*3/uL (130-400); RED BLOOD COUNT 5.65 10*6/uL (4.50-5.90); RED CELL DISTRI WIDTH 13.3 % (0-14.5); WHITE BLOOD COUNT 15.9 10*3/uL (4.8-10.8)
[2021-08-20 06:48] LABS: PLATELET SUFFICIENCY NORMAL (NORMAL); POLYCHROMASIA SLIGHT; TOTAL CELLS COUNTED 100 #CELLS
[2021-08-20 08:00] VITALS: BP 144/86; BP 155/100
[2021-08-20 11:24] LABS: ARTERIAL BLOOD GAS PH 7.336 (7.35-7.45)
[2021-08-20 12:00] VITALS: BP 135/76
[2021-08-20 16:00] VITALS: BP 148/81
[2021-08-20 20:00] VITALS: BP 129/79
[2021-08-21] VITALS: BP 142/69
[2021-08-21 06:18] LABS: BASO % 0.2 % (0.0-1.0); HEMATOCRIT 44.9 % (42.0-52.0); LYMPH # 1.3 10*3/uL (1.3-4.4); LYMPH % 8.7 % (27.0-41.0); MEAN CELL VOLUME 84.7 fl (80.0-94.0); MEAN CORPUSCULAR HGB 25.8 pg (27.0-31.0); MEAN CORPUSCULAR HGB CONC 30.5 g/dl (33.0-37.0); MEAN PLATELET VOLUME 9.7 fl (9.6-12.3); MONO # 0.8 10*3/uL (0.1-1.0); MONO % 5.3 % (3.0-9.0); NEUT # 12.4 10*3/uL (2.3-7.9); NEUT % 84.7 % (47.0-73.0); PLATELET COUNT AUTOMATED 395 10*3/uL (130-400); RED CELL DISTRI WIDTH 13.2 % (0-14.5); WHITE BLOOD COUNT 14.6 10*3/uL (4.8-10.8)
[2021-08-21 06:26] LABS: CHLORIDE 91 mmol/L (98-107); POTASSIUM 3.2 mmol/L (3.5-5.1); SODIUM 140 mmol/L (136-145)
[2021-08-21 06:32] LABS: BUN 28 mg/dl (7-24); CREATININE 1.07 mg/dL (0.70-1.30)
[2021-08-21 08:00] VITALS: BP 131/71
[2021-08-21 08:00] LABS: ARTERIAL BLOOD GAS PH 7.347 (7.35-7.45); ARTERIAL BLOOD GAS PO2 65.9 (80-90)
[2021-08-21 12:00] VITALS: BP 130/86
[2021-08-21 16:00] VITALS: BP 119/62
[2021-08-21 20:00] VITALS: BP 124/66
[2021-08-22] VITALS: BP 129/71
[2021-08-22 06:33] LABS: BASO % 0.2 % (0.0-1.0); EOS % 0.1 % (1.0-4.0); HEMATOCRIT 46.7 % (42.0-52.0); LYMPH # 1.3 10*3/uL (1.3-4.4); LYMPH % 8.4 % (27.0-41.0); MEAN CELL VOLUME 86.2 fl (80.0-94.0); MEAN CORPUSCULAR HGB 25.6 pg (27.0-31.0); MEAN CORPUSCULAR HGB CONC 29.8 g/dl (33.0-37.0); MEAN PLATELET VOLUME 10.1 fl (9.6-12.3); MONO # 0.6 10*3/uL (0.1-1.0); MONO % 3.7 % (3.0-9.0); NEUT # 13.5 10*3/uL (2.3-7.9); NEUT % 86.6 % (47.0-73.0); PLATELET COUNT AUTOMATED 367 10*3/uL (130-400); RED BLOOD COUNT 5.42 10*6/uL (4.50-5.90); RED CELL DISTRI WIDTH 13.4 % (0-14.5); WHITE BLOOD COUNT 15.6 10*3/uL (4.8-10.8)
[2021-08-22 06:44] LABS: BUN 33 mg/dl (7-24); CHLORIDE 97 mmol/L (98-107); POTASSIUM 3.6 mmol/L (3.5-5.1); SODIUM 140 mmol/L (136-145)
[2021-08-22 06:46] LABS: CREATININE 1.01 mg/dL (0.70-1.30)
[2021-08-22 07:18] LABS: ABG BASE EXCESS 9.5 mmol/L (-2.0-2.0); ARTERIAL BLOOD GAS PH 7.373 (7.35-7.45); ARTERIAL BLOOD GAS PO2 58.8 (80-90)
[2021-08-22 08:00] VITALS: BP 117/58
[2021-08-22 12:00] VITALS: BP 122/60
[2021-08-22 16:00] VITALS: BP 118/67
[2021-08-22 20:00] VITALS: BP 109/78
[2021-08-23] VITALS: BP 124/73
[2021-08-23 06:22] LABS: CHLORIDE 95 mmol/L (98-107); CREATININE 1.05 mg/dL (0.70-1.30); POTASSIUM 3.3 mmol/L (3.5-5.1); SODIUM 138 mmol/L (136-145)
[2021-08-23 06:28] LABS: BUN 43 mg/dl (7-24)
[2021-08-23 08:00] VITALS: BP 129/61
[2021-08-23 12:00] VITALS: BP 108/54
[2021-08-23 16:00] VITALS: BP 111/56
[2021-08-23 20:00] VITALS: BP 133/63
[2021-08-24] VITALS: BP 106/58
[2021-08-24 06:31] LABS: BUN 44 mg/dl (7-24); CHLORIDE 99 mmol/L (98-107); CREATININE 0.97 mg/dL (0.70-1.30); POTASSIUM 3.5 mmol/L (3.5-5.1); SODIUM 139 mmol/L (136-145)
[2021-08-24 08:00] VITALS: BP 133/61
[2021-08-24 12:00] VITALS: BP 113/82
[2021-08-24 16:00] VITALS: BP 128/60; BP 128/70
[2021-08-24 20:00] VITALS: BP 134/73
[2021-08-25] VITALS: BP 138/70
[2021-08-25 06:06] LABS: BASO % 0.1 % (0.0-1.0); HEMATOCRIT 42.1 % (42.0-52.0); LYMPH # 1.4 10*3/uL (1.3-4.4); LYMPH % 6.6 % (27.0-41.0); MEAN CELL VOLUME 82.9 fl (80.0-94.0); MEAN CORPUSCULAR HGB 25.8 pg (27.0-31.0); MEAN CORPUSCULAR HGB CONC 31.1 g/dl (33.0-37.0); MEAN PLATELET VOLUME 10.4 fl (9.6-12.3); MONO # 0.6 10*3/uL (0.1-1.0); MONO % 2.9 % (3.0-9.0); NEUT # 18.2 10*3/uL (2.3-7.9); NEUT % 89.6 % (47.0-73.0); PLATELET COUNT AUTOMATED 315 10*3/uL (130-400); RED BLOOD COUNT 5.08 10*6/uL (4.50-5.90); RED CELL DISTRI WIDTH 13.5 % (0-14.5); WHITE BLOOD COUNT 20.3 10*3/uL (4.8-10.8)
[2021-08-25 08:00] VITALS: BP 112/65
[2021-08-25 12:00] VITALS: BP 122/86
[2021-08-25 16:00] VITALS: BP 116/82
[2021-08-25 20:00] VITALS: BP 137/66
[2021-08-26] VITALS: BP 134/69
[2021-08-26 08:00] VITALS: BP 126/66
[2021-08-26 12:00] VITALS: BP 122/58
[2021-08-26 16:00] VITALS: BP 119/72
[2021-08-26 20:00] VITALS: BP 132/74
[2021-08-27] VITALS: BP 152/68
[2021-08-27 05:57] LABS: BUN 44 mg/dl (7-24); CHLORIDE 101 mmol/L (98-107); CREATININE 0.89 mg/dL (0.70-1.30); SODIUM 136 mmol/L (136-145)
[2021-08-27 06:25] LABS: HEMATOCRIT 40.9 % (42.0-52.0); MEAN CELL VOLUME 83.6 fl (80.0-94.0); MEAN CORPUSCULAR HGB 25.8 pg (27.0-31.0); MEAN CORPUSCULAR HGB CONC 30.8 g/dl (33.0-37.0); MEAN PLATELET VOLUME 11.1 fl (9.6-12.3); PLATELET COUNT AUTOMATED 283 10*3/uL (130-400); RED BLOOD COUNT 4.89 10*6/uL (4.50-5.90); RED CELL DISTRI WIDTH 13.5 % (0-14.5); WHITE BLOOD COUNT 22.2 10*3/uL (4.8-10.8)
[2021-08-27 07:26] LABS: OVALOCYTES FEW; PLATELET SUFFICIENCY NORMAL (NORMAL); TOTAL CELLS COUNTED 100 #CELLS
[2021-08-27 07:27] LABS: POLYCHROMASIA SLIGHT
[2021-08-27 08:00] VITALS: BP 118/70
[2021-08-27 11:46] VITALS: BP 129/65
[2021-08-27] MEDS ORDERED: PREDNISONE10 MG PO (11:49)
[2021-08-27] MEDS ORDERED: LINZESS145 MC1 PO (11:49)
== END 2021-08-27 15:43 | disposition home health service (06) | DRG 720 ==
LOC: ED 13:16 → EDHOLD 15:20 → 4E 15:20
PROVIDERS: Emergency Medicine; Family Medicine; Hospitalist; Internal Medicine; Nurse Practitioner Family; Registered Nurse; ADMIT Student in an Organized Health Care Education/Training Program; ATTEND Student in an Organized Health Care Education/Training Program
PROC: 5A09357 Assistance with Respiratory Ventilation, Less than 24 Consecutive Hours, Continuous Positive Airway Pressure (ICD-10-PCS; principal; 2021-08-17)
PROC: 5A0935A Assistance with Respiratory Ventilation, Less than 24 Consecutive Hours, High Flow/Velocity Cannula (ICD-10-PCS; 2021-08-18)
PROC: 5A09357 Assistance with Respiratory Ventilation, Less than 24 Consecutive Hours, Continuous Positive Airway Pressure (ICD-10-PCS; 2021-08-19)
PROC: 5A0935A Assistance with Respiratory Ventilation, Less than 24 Consecutive Hours, High Flow/Velocity Cannula (ICD-10-PCS; 2021-08-19)
PROC: 5A09357 Assistance with Respiratory Ventilation, Less than 24 Consecutive Hours, Continuous Positive Airway Pressure (ICD-10-PCS; 2021-08-20)
PROC: 5A09357 Assistance with Respiratory Ventilation, Less than 24 Consecutive Hours, Continuous Positive Airway Pressure (ICD-10-PCS; 2021-08-22)
PROC: 5A09357 Assistance with Respiratory Ventilation, Less than 24 Consecutive Hours, Continuous Positive Airway Pressure (ICD-10-PCS; 2021-08-23)
PROC: 5A0935A Assistance with Respiratory Ventilation, Less than 24 Consecutive Hours, High Flow/Velocity Cannula (ICD-10-PCS; 2021-08-23)
PROC: 5A09357 Assistance with Respiratory Ventilation, Less than 24 Consecutive Hours, Continuous Positive Airway Pressure (ICD-10-PCS; 2021-08-24)
PROC: 5A0935A Assistance with Respiratory Ventilation, Less than 24 Consecutive Hours, High Flow/Velocity Cannula (ICD-10-PCS; 2021-08-24)
PROC: 5A09357 Assistance with Respiratory Ventilation, Less than 24 Consecutive Hours, Continuous Positive Airway Pressure (ICD-10-PCS; 2021-08-25)
PROC: 5A0935A Assistance with Respiratory Ventilation, Less than 24 Consecutive Hours, High Flow/Velocity Cannula (ICD-10-PCS; 2021-08-25)
PROC: 5A09357 Assistance with Respiratory Ventilation, Less than 24 Consecutive Hours, Continuous Positive Airway Pressure (ICD-10-PCS; 2021-08-26)
PROC: 5A09357 Assistance with Respiratory Ventilation, Less than 24 Consecutive Hours, Continuous Positive Airway Pressure (ICD-10-PCS; 2021-08-27)
DX: A41.9 Sepsis, unspecified organism (principal); J96.21 Acute and chronic respiratory failure with hypoxia; E44.0 Moderate protein-calorie malnutrition; I50.32 Chronic diastolic (congestive) heart failure; N30.00 Acute cystitis without hematuria; Z20.822 Contact with and (suspected) exposure to COVID-19; D64.9 Anemia, unspecified; R65.20 Severe sepsis without septic shock; J44.0 Chronic obstructive pulmonary disease with (acute) lower respiratory infection; G47.33 Obstructive sleep apnea (adult) (pediatric); F43.10 Post-traumatic stress disorder, unspecified; J96.22 Acute and chronic respiratory failure with hypercapnia; E66.9 Obesity, unspecified; I11.0 Hypertensive heart disease with heart failure; J44.1 Chronic obstructive pulmonary disease with (acute) exacerbation; F17.210 Nicotine dependence, cigarettes, uncomplicated; J98.11 Atelectasis; E87.3 Alkalosis; B96.20 Unspecified Escherichia coli [E. coli] as the cause of diseases classified elsewhere; Z88.1 Allergy status to other antibiotic agents; Z88.8 Allergy status to other drugs, medicaments and biological substances; Z82.49 Family history of ischemic heart disease and other diseases of the circulatory system; Z99.81 Dependence on supplemental oxygen; Z68.41 Body mass index [BMI] 40.0-44.9, adult; Z79.51 Long term (current) use of inhaled steroids; Z79.82 Long term (current) use of aspirin; Z79.899 Other long term (current) drug therapy; J15.6 Pneumonia due to other Gram-negative bacteria

== ENCOUNTER → 2021-12-14 | Outpatient (CLI) | payer OTHER ==
[~2021-12-14] MED LIST changes: +TRAZODONE100 MG PO; +VITAMIN D350 MC2 PO
== END ==
LOC: WOUNDCARE 10:22
PROVIDERS: ATTEND Nurse Practitioner Family
DX: I70.238 Atherosclerosis of native arteries of right leg with ulceration of other part of lower leg (principal); L97.812 Non-pressure chronic ulcer of other part of right lower leg with fat layer exposed; L03.115 Cellulitis of right lower limb; I11.0 Hypertensive heart disease with heart failure; I50.9 Heart failure, unspecified; J43.9 Emphysema, unspecified; Z99.81 Dependence on supplemental oxygen; Z98.42 Cataract extraction status, left eye; Z98.41 Cataract extraction status, right eye; Z98.890 Other specified postprocedural states; Z79.899 Other long term (current) drug therapy; Z79.891 Long term (current) use of opiate analgesic

== ENCOUNTER → 2021-12-14 | Outpatient (CLI) | payer OTHER ==
[2021-12-14 14:45] LABS: HEMATOCRIT 37.3 % (42.0-52.0); MEAN CELL VOLUME 77.5 fl (80.0-94.0); MEAN CORPUSCULAR HGB 23.7 pg (27.0-31.0); MEAN CORPUSCULAR HGB CONC 30.6 g/dl (33.0-37.0); MEAN PLATELET VOLUME 9.2 fl (9.6-12.3); PLATELET COUNT AUTOMATED 361 10*3/uL (130-400); RED BLOOD COUNT 4.81 10*6/uL (4.50-5.90); RED CELL DISTRI WIDTH 13.5 % (0-14.5); WHITE BLOOD COUNT 9.4 10*3/uL (4.8-10.8)
[2021-12-14 15:03] LABS: ALBUMIN 3.5 gm/dl (3.1-4.5); BUN 18 mg/dl (7-24); CHLORIDE 101 mmol/L (98-107); CHOLESTEROL 136 mg/dL (<200); CREATININE 1.33 mg/dL (0.70-1.30); POTASSIUM 4.2 mmol/L (3.5-5.1); SGOT/AST 11 IU/L (3-35); SGPT/ALT 16 U/L (12-78); SODIUM 136 mmol/L (136-145); T3 UPTAKE 35 % (31-39); TOTAL PROTEIN 8.5 gm/dL (6.4-8.2); TRIGLYCERIDES 165 mg/dl (<150)
[2021-12-14 15:08] LABS: ALKALINE PHOSPHATASE 100 U/L (45-117); LDL CHOLESTEROL 63 mg/dL (9-159)
[2021-12-14 16:36] LABS: MICROCYTOSIS SLIGHT; PLATELET SUFFICIENCY NORMAL (NORMAL); TOTAL CELLS COUNTED 100 #CELLS
== END | disposition home or self-care (01) ==
LOC: LAB 13:07
PROVIDERS: ATTEND Family Medicine
DX: Z13.1 Encounter for screening for diabetes mellitus (principal); Z13.6 Encounter for screening for cardiovascular disorders; Z00.00 Encounter for general adult medical examination without abnormal findings; D75.839 Thrombocytosis, unspecified

== ENCOUNTER → 2021-12-27 | Outpatient (CLI) | payer OTHER | LOC: WOUNDCARE 02:24 | PROVIDERS: ATTEND Nurse Practitioner Family | DX: I70.238 Atherosclerosis of native arteries of right leg with ulceration of other part of lower leg (principal); L97.812 Non-pressure chronic ulcer of other part of right lower leg with fat layer exposed; L03.115 Cellulitis of right lower limb; I11.0 Hypertensive heart disease with heart failure; I50.9 Heart failure, unspecified; J43.9 Emphysema, unspecified; Z98.42 Cataract extraction status, left eye; Z99.81 Dependence on supplemental oxygen; Z98.41 Cataract extraction status, right eye; Z98.890 Other specified postprocedural states; Z79.899 Other long term (current) drug therapy; Z79.891 Long term (current) use of opiate analgesic ==

== ENCOUNTER → 2021-12-31 | Outpatient (CLI) | payer OTHER | END | disposition home or self-care (01) | LOC: US 14:52 | PROVIDERS: ATTEND Nurse Practitioner Family | DX: L97.912 Non-pressure chronic ulcer of unspecified part of right lower leg with fat layer exposed (principal) ==

== ENCOUNTER → 2022-01-02 | Outpatient (CLI) | payer OTHER | LOC: WOUNDCARE 09:11 | PROVIDERS: ATTEND Nurse Practitioner Family | DX: I70.238 Atherosclerosis of native arteries of right leg with ulceration of other part of lower leg (principal); L97.812 Non-pressure chronic ulcer of other part of right lower leg with fat layer exposed; L03.115 Cellulitis of right lower limb; I11.0 Hypertensive heart disease with heart failure; I50.9 Heart failure, unspecified; J43.9 Emphysema, unspecified; Z98.42 Cataract extraction status, left eye; Z99.81 Dependence on supplemental oxygen; Z98.41 Cataract extraction status, right eye; Z98.890 Other specified postprocedural states; Z79.899 Other long term (current) drug therapy; Z79.891 Long term (current) use of opiate analgesic ==

== ENCOUNTER → 2022-01-09 | Outpatient (CLI) | payer OTHER | LOC: WOUNDCARE 00:39 | PROVIDERS: ATTEND Nurse Practitioner Family | DX: I70.238 Atherosclerosis of native arteries of right leg with ulceration of other part of lower leg (principal); L97.812 Non-pressure chronic ulcer of other part of right lower leg with fat layer exposed; L03.115 Cellulitis of right lower limb; I11.0 Hypertensive heart disease with heart failure; I50.9 Heart failure, unspecified; J43.9 Emphysema, unspecified; Z98.42 Cataract extraction status, left eye; Z99.81 Dependence on supplemental oxygen; Z98.41 Cataract extraction status, right eye; Z98.890 Other specified postprocedural states; Z79.899 Other long term (current) drug therapy; Z79.891 Long term (current) use of opiate analgesic ==

== ENCOUNTER → 2022-01-17 | Outpatient (CLI) | payer OTHER ==
[2022-01-17 15:42] LABS: BASO % 0.3 % (0.0-1.0); EOS # 0.1 10*3/uL (0.0-0.4); EOS % 0.8 % (1.0-4.0); HEMATOCRIT 41.3 % (42.0-52.0); LYMPH # 1.5 10*3/uL (1.3-4.4); LYMPH % 10.3 % (27.0-41.0); MEAN CELL VOLUME 76.9 fl (80.0-94.0); MEAN CORPUSCULAR HGB 22.7 pg (27.0-31.0); MEAN CORPUSCULAR HGB CONC 29.5 g/dl (33.0-37.0); MEAN PLATELET VOLUME 9.1 fl (9.6-12.3); MONO # 0.8 10*3/uL (0.1-1.0); MONO % 5.8 % (3.0-9.0); NEUT # 11.7 10*3/uL (2.3-7.9); PLATELET COUNT AUTOMATED 421 10*3/uL (130-400); RED BLOOD COUNT 5.37 10*6/uL (4.50-5.90); RED CELL DISTRI WIDTH 14.8 % (0-14.5); WHITE BLOOD COUNT 14.2 10*3/uL (4.8-10.8)
== END | disposition home or self-care (01) ==
LOC: LAB 15:24
PROVIDERS: ATTEND Family Medicine
DX: D75.839 Thrombocytosis, unspecified (principal)

== ENCOUNTER → 2022-01-17 | Outpatient (CLI) | payer OTHER | LOC: WOUNDCARE 02:43 | PROVIDERS: ATTEND Nurse Practitioner Family | DX: I70.238 Atherosclerosis of native arteries of right leg with ulceration of other part of lower leg (principal); L97.812 Non-pressure chronic ulcer of other part of right lower leg with fat layer exposed; L03.115 Cellulitis of right lower limb; I11.0 Hypertensive heart disease with heart failure; I50.9 Heart failure, unspecified; J43.9 Emphysema, unspecified; Z98.42 Cataract extraction status, left eye; Z99.81 Dependence on supplemental oxygen; Z98.41 Cataract extraction status, right eye; Z98.890 Other specified postprocedural states; Z79.899 Other long term (current) drug therapy; Z79.891 Long term (current) use of opiate analgesic ==

== ENCOUNTER → 2022-01-31 | Outpatient (CLI) | payer OTHER | END | disposition home or self-care (01) | LOC: WOUNDCARE 02:25 | PROVIDERS: ATTEND Nurse Practitioner Family | DX: I70.238 Atherosclerosis of native arteries of right leg with ulceration of other part of lower leg (principal); L97.812 Non-pressure chronic ulcer of other part of right lower leg with fat layer exposed; L03.115 Cellulitis of right lower limb; I11.0 Hypertensive heart disease with heart failure; I50.9 Heart failure, unspecified; J43.9 Emphysema, unspecified; Z87.891 Personal history of nicotine dependence; Z98.41 Cataract extraction status, right eye; Z98.42 Cataract extraction status, left eye; Z99.81 Dependence on supplemental oxygen ==

== ENCOUNTER → 2022-02-13 | Outpatient (CLI) | payer OTHER | END | disposition home or self-care (01) | LOC: WOUNDCARE 02:52 | PROVIDERS: ATTEND Nurse Practitioner Family | DX: I70.238 Atherosclerosis of native arteries of right leg with ulceration of other part of lower leg (principal); L97.812 Non-pressure chronic ulcer of other part of right lower leg with fat layer exposed; L03.115 Cellulitis of right lower limb; I11.0 Hypertensive heart disease with heart failure; I50.9 Heart failure, unspecified; J43.9 Emphysema, unspecified; Z87.891 Personal history of nicotine dependence; Z98.41 Cataract extraction status, right eye; Z98.42 Cataract extraction status, left eye; Z99.81 Dependence on supplemental oxygen ==

== ENCOUNTER → 2022-02-22 | Outpatient (CLI) | payer OTHER | END | disposition home or self-care (01) | LOC: WOUNDCARE 00:29 | PROVIDERS: ATTEND Nurse Practitioner Family | DX: I70.238 Atherosclerosis of native arteries of right leg with ulceration of other part of lower leg (principal); L97.812 Non-pressure chronic ulcer of other part of right lower leg with fat layer exposed; L03.115 Cellulitis of right lower limb; I11.0 Hypertensive heart disease with heart failure; I50.9 Heart failure, unspecified; J43.9 Emphysema, unspecified; Z99.81 Dependence on supplemental oxygen; Z87.891 Personal history of nicotine dependence; Z98.41 Cataract extraction status, right eye; Z98.42 Cataract extraction status, left eye ==

== ENCOUNTER → 2022-03-04 | Outpatient (CLI) | payer OTHER | END | disposition home or self-care (01) | LOC: WOUNDCARE 02:26 | PROVIDERS: ATTEND Nurse Practitioner Family | DX: I70.238 Atherosclerosis of native arteries of right leg with ulceration of other part of lower leg (principal); L97.812 Non-pressure chronic ulcer of other part of right lower leg with fat layer exposed; L03.115 Cellulitis of right lower limb; I11.0 Hypertensive heart disease with heart failure; I50.9 Heart failure, unspecified; J43.9 Emphysema, unspecified; Z87.891 Personal history of nicotine dependence; Z98.41 Cataract extraction status, right eye; Z98.42 Cataract extraction status, left eye; Z99.81 Dependence on supplemental oxygen ==

== ENCOUNTER → 2022-03-22 | Outpatient (CLI) | payer OTHER ==
[~2022-03-22] MED LIST changes: +ACETAZOLAMIDE500 M4 PO
== END | disposition home or self-care (01) ==
LOC: WOUNDCARE 02:08
PROVIDERS: ATTEND Podiatrist Foot & Ankle Surgery
DX: I70.238 Atherosclerosis of native arteries of right leg with ulceration of other part of lower leg (principal); L97.812 Non-pressure chronic ulcer of other part of right lower leg with fat layer exposed; L03.115 Cellulitis of right lower limb; I87.2 Venous insufficiency (chronic) (peripheral); I11.0 Hypertensive heart disease with heart failure; I50.9 Heart failure, unspecified; J43.9 Emphysema, unspecified; Z87.891 Personal history of nicotine dependence; Z98.41 Cataract extraction status, right eye; Z98.42 Cataract extraction status, left eye

== ENCOUNTER 2022-04-01 17:09 | Inpatient (IN) | payer OTHER ==
[~2022-04-01] VITALS: Ht 170.1 cm; Wt 114.1 kg
[~2022-04-01 17:09] MED LIST changes: -ACETAZOLAMIDE500 M4 PO
[2022-04-01 17:17] VITALS: BP 139/69
[2022-04-01 18:03] LABS: BASO % 0.4 % (0.0-1.0); EOS # 0.3 10*3/uL (0.0-0.4); EOS % 3.2 % (1.0-4.0); HEMATOCRIT 41.4 % (42.0-52.0); LYMPH # 1.3 10*3/uL (1.3-4.4); LYMPH % 14.2 % (27.0-41.0); MEAN CELL VOLUME 78.1 fl (80.0-94.0); MEAN CORPUSCULAR HGB 23.6 pg (27.0-31.0); MEAN CORPUSCULAR HGB CONC 30.2 g/dl (33.0-37.0); MEAN PLATELET VOLUME 9.7 fl (9.6-12.3); MONO # 0.8 10*3/uL (0.1-1.0); MONO % 9.1 % (3.0-9.0); NEUT # 6.7 10*3/uL (2.3-7.9); NEUT % 72.7 % (47.0-73.0); PLATELET COUNT AUTOMATED 356 10*3/uL (130-400); RED CELL DISTRI WIDTH 14.5 % (0-14.5); WHITE BLOOD COUNT 9.2 10*3/uL (4.8-10.8)
[2022-04-01 18:14] LABS: ACT PARTIAL THROMBO TIME 32.3 SECONDS (20.0-32.1)
[2022-04-01 18:14] LABS: ABG BASE EXCESS -3.3 mmol/L (-2.0-2.0); ARTERIAL BLOOD GAS PH 7.242 (7.35-7.45); ARTERIAL BLOOD GAS PO2 104.3 (80-90)
[2022-04-01 18:22] LABS: CREATININE 1.54 mg/dL (0.70-1.30); POTASSIUM 3.1 mmol/L (3.5-5.1); TOTAL PROTEIN 7.7 gm/dL (6.4-8.2)
[2022-04-01 18:48] LABS: BILIRUBIN Negative (Negative); BLOOD 3+ (Negative); CLARITY Cloudy (Clear); COLOR Yellow (Yellow); GLUCOSE Negative (Negative); KETONE Negative (Negative); LEUKO ESTERASE 3+ (Negative); NITRITE Negative (Negative); PH 6.5 (4.5-8.0); SPECIFIC GRAVITY 1.015 (1.001-1.030)
[2022-04-01 19:02] LABS: HYALINE CAST 0-2; RBC TNTC rbc/hpf (0-2); WBC TNTC wbc/hpf (0-5)
[2022-04-01 19:03] LABS: BACTERIA 2+
[2022-04-01 21:50] VITALS: BP 150/84
[2022-04-01] MEDS ORDERED: ACETAZOLAMIDE500 M4 PO (22:14)
[2022-04-02] VITALS: BP 152/84
[2022-04-02 06:10] LABS: BUN 24 mg/dl (7-24); CHLORIDE 112 mmol/L (98-107); CREATININE 1.15 mg/dL (0.70-1.30); POTASSIUM 3.4 mmol/L (3.5-5.1); SODIUM 142 mmol/L (136-145)
[2022-04-02 06:14] LABS: BASO % 0.3 % (0.0-1.0); HEMATOCRIT 37.1 % (42.0-52.0); LYMPH # 0.7 10*3/uL (1.3-4.4); LYMPH % 9.3 % (27.0-41.0); MEAN CELL VOLUME 77.8 fl (80.0-94.0); MEAN CORPUSCULAR HGB 23.7 pg (27.0-31.0); MEAN CORPUSCULAR HGB CONC 30.5 g/dl (33.0-37.0); MEAN PLATELET VOLUME 10.4 fl (9.6-12.3); MONO # 0.2 10*3/uL (0.1-1.0); MONO % 2.9 % (3.0-9.0); NEUT # 6.4 10*3/uL (2.3-7.9); NEUT % 87.1 % (47.0-73.0); PLATELET COUNT AUTOMATED 340 10*3/uL (130-400); RED BLOOD COUNT 4.77 10*6/uL (4.50-5.90); RED CELL DISTRI WIDTH 14.1 % (0-14.5); WHITE BLOOD COUNT 7.3 10*3/uL (4.8-10.8)
[2022-04-02 08:00] VITALS: BP 122/68
[2022-04-02 12:00] VITALS: BP 115/57
[2022-04-02 16:00] VITALS: BP 138/63
[2022-04-02 20:00] VITALS: BP 125/68
[2022-04-03] VITALS: BP 129/74
[2022-04-03 06:11] LABS: CHLORIDE 113 mmol/L (98-107); POTASSIUM 3.2 mmol/L (3.5-5.1); SODIUM 141 mmol/L (136-145)
[2022-04-03 06:20] LABS: BASO % 0.1 % (0.0-1.0); HEMATOCRIT 32.8 % (42.0-52.0); LYMPH # 1.2 10*3/uL (1.3-4.4); LYMPH % 9.6 % (27.0-41.0); MEAN CELL VOLUME 76.1 fl (80.0-94.0); MEAN CORPUSCULAR HGB 23.9 pg (27.0-31.0); MEAN CORPUSCULAR HGB CONC 31.4 g/dl (33.0-37.0); MEAN PLATELET VOLUME 10.3 fl (9.6-12.3); MONO # 0.8 10*3/uL (0.1-1.0); MONO % 6.8 % (3.0-9.0); NEUT # 9.9 10*3/uL (2.3-7.9); NEUT % 82.9 % (47.0-73.0); PLATELET COUNT AUTOMATED 362 10*3/uL (130-400); RED BLOOD COUNT 4.31 10*6/uL (4.50-5.90); RED CELL DISTRI WIDTH 14.3 % (0-14.5)
[2022-04-03 06:22] LABS: BUN 31 mg/dl (7-24); CREATININE 1.12 mg/dL (0.70-1.30)
[2022-04-03 07:35] LABS: ARTERIAL BLOOD GAS PH 7.348 (7.35-7.45)
[2022-04-03 08:00] VITALS: BP 130/65
[2022-04-03 12:00] VITALS: BP 137/67
[2022-04-03] MEDS ORDERED: PREDNISONE10 MG PO (12:03)
[2022-04-03] MEDS ORDERED: DOXYCYCLINE HY100 M3 PO (12:03)
== END 2022-04-03 13:50 | disposition home or self-care (01) | DRG 133 ==
LOC: ED 17:09 → 5E 20:26 → EDHOLD 20:26 → 5E 21:08
PROVIDERS: Emergency Medicine; Family Medicine; Internal Medicine; ADMIT Internal Medicine; ATTEND Internal Medicine
PROC: 5A09357 Assistance with Respiratory Ventilation, Less than 24 Consecutive Hours, Continuous Positive Airway Pressure (ICD-10-PCS; principal; 2022-04-02)
DX: J96.22 Acute and chronic respiratory failure with hypercapnia (principal); G93.41 Metabolic encephalopathy; N39.0 Urinary tract infection, site not specified; N17.0 Acute kidney failure with tubular necrosis; R73.9 Hyperglycemia, unspecified; E87.6 Hypokalemia; R31.9 Hematuria, unspecified; E87.8 Other disorders of electrolyte and fluid balance, not elsewhere classified; D50.9 Iron deficiency anemia, unspecified; R31.0 Gross hematuria; K92.1 Melena; E87.2 Acidosis; N32.1 Vesicointestinal fistula; I73.9 Peripheral vascular disease, unspecified; I77.1 Stricture of artery; I87.2 Venous insufficiency (chronic) (peripheral); Z88.1 Allergy status to other antibiotic agents; Z82.49 Family history of ischemic heart disease and other diseases of the circulatory system; Z79.899 Other long term (current) drug therapy; Z79.82 Long term (current) use of aspirin; Z79.51 Long term (current) use of inhaled steroids

== ENCOUNTER → 2022-04-15 | Outpatient (CLI) | payer OTHER ==
[~2022-04-15] MED LIST changes: +ACETAZOLAMIDE500 M4 PO; +DOXYCYCLINE HY100 M3 PO
== END ==
LOC: WOUNDCARE 04:20
PROVIDERS: ATTEND Podiatrist Foot & Ankle Surgery
DX: I70.238 Atherosclerosis of native arteries of right leg with ulceration of other part of lower leg (principal); L97.812 Non-pressure chronic ulcer of other part of right lower leg with fat layer exposed; L03.115 Cellulitis of right lower limb; I87.2 Venous insufficiency (chronic) (peripheral); I11.0 Hypertensive heart disease with heart failure; I50.9 Heart failure, unspecified; J43.9 Emphysema, unspecified; Z87.891 Personal history of nicotine dependence; Z98.41 Cataract extraction status, right eye; Z98.42 Cataract extraction status, left eye

== ENCOUNTER → 2022-04-22 | Outpatient (CLI) | payer OTHER | LOC: WOUNDCARE 02:48 | PROVIDERS: ATTEND Podiatrist Foot & Ankle Surgery | DX: I70.238 Atherosclerosis of native arteries of right leg with ulceration of other part of lower leg (principal); L97.812 Non-pressure chronic ulcer of other part of right lower leg with fat layer exposed; L03.115 Cellulitis of right lower limb; I87.2 Venous insufficiency (chronic) (peripheral); I11.0 Hypertensive heart disease with heart failure; I50.9 Heart failure, unspecified; J43.9 Emphysema, unspecified; Z87.891 Personal history of nicotine dependence; Z98.41 Cataract extraction status, right eye; Z98.42 Cataract extraction status, left eye ==

== ENCOUNTER → 2022-05-01 | Outpatient (CLI) | payer OTHER | END | disposition home or self-care (01) | LOC: WOUNDCARE 01:24 | PROVIDERS: ATTEND Nurse Practitioner Family | DX: I70.238 Atherosclerosis of native arteries of right leg with ulceration of other part of lower leg (principal); L97.812 Non-pressure chronic ulcer of other part of right lower leg with fat layer exposed; L03.115 Cellulitis of right lower limb; I87.2 Venous insufficiency (chronic) (peripheral); I11.0 Hypertensive heart disease with heart failure; I50.9 Heart failure, unspecified; J43.9 Emphysema, unspecified; Z87.891 Personal history of nicotine dependence; Z98.41 Cataract extraction status, right eye; Z98.42 Cataract extraction status, left eye ==

== ENCOUNTER → 2022-05-08 | Outpatient (CLI) | payer OTHER ==
[2022-05-09 11:07] LABS: HBSAG Negative (Negative); HEP B CORE AB, IGM Negative (Negative); HEPATITIS C ANTIBODY 0.2 (0.0-0.9); RHEUMATOID FACTOR <10.0 IU/mL (<14.0)
== END | disposition home or self-care (01) ==
LOC: LAB 00:41 → WOUNDCARE 00:41
PROVIDERS: Family Medicine; ATTEND Nurse Practitioner Family
DX: I70.238 Atherosclerosis of native arteries of right leg with ulceration of other part of lower leg (principal); L97.812 Non-pressure chronic ulcer of other part of right lower leg with fat layer exposed; L03.115 Cellulitis of right lower limb; M25.50 Pain in unspecified joint; I87.2 Venous insufficiency (chronic) (peripheral); I11.0 Hypertensive heart disease with heart failure; I50.9 Heart failure, unspecified; J43.9 Emphysema, unspecified; Z87.891 Personal history of nicotine dependence; Z98.41 Cataract extraction status, right eye; Z98.42 Cataract extraction status, left eye; Z79.899 Other long term (current) drug therapy; Z98.890 Other specified postprocedural states; Z79.891 Long term (current) use of opiate analgesic; Z88.1 Allergy status to other antibiotic agents; Z99.81 Dependence on supplemental oxygen

== ENCOUNTER → 2022-05-14 | Outpatient (CLI) | payer OTHER | END | disposition home or self-care (01) | LOC: WOUNDCARE 01:26 | PROVIDERS: ATTEND Nurse Practitioner Family | DX: I70.238 Atherosclerosis of native arteries of right leg with ulceration of other part of lower leg (principal); L97.812 Non-pressure chronic ulcer of other part of right lower leg with fat layer exposed; L03.115 Cellulitis of right lower limb; M25.50 Pain in unspecified joint; I87.2 Venous insufficiency (chronic) (peripheral); I11.0 Hypertensive heart disease with heart failure; I50.9 Heart failure, unspecified; J43.9 Emphysema, unspecified; Z87.891 Personal history of nicotine dependence; Z98.41 Cataract extraction status, right eye; Z98.42 Cataract extraction status, left eye ==

== ENCOUNTER → 2022-05-22 | Outpatient (CLI) | payer OTHER | END | disposition home or self-care (01) | LOC: WOUNDCARE 01:24 | PROVIDERS: ATTEND Nurse Practitioner Family | DX: I70.238 Atherosclerosis of native arteries of right leg with ulceration of other part of lower leg (principal); L97.812 Non-pressure chronic ulcer of other part of right lower leg with fat layer exposed; L03.115 Cellulitis of right lower limb; I87.2 Venous insufficiency (chronic) (peripheral); I11.0 Hypertensive heart disease with heart failure; I50.9 Heart failure, unspecified; J43.9 Emphysema, unspecified; Z99.81 Dependence on supplemental oxygen; Z87.891 Personal history of nicotine dependence; Z98.41 Cataract extraction status, right eye; Z98.42 Cataract extraction status, left eye ==

== ENCOUNTER → 2022-05-29 | Outpatient (CLI) | payer OTHER | END | disposition home or self-care (01) | LOC: WOUNDCARE 00:58 | PROVIDERS: ATTEND Nurse Practitioner Family | DX: I70.238 Atherosclerosis of native arteries of right leg with ulceration of other part of lower leg (principal); L97.812 Non-pressure chronic ulcer of other part of right lower leg with fat layer exposed; L03.115 Cellulitis of right lower limb; I11.0 Hypertensive heart disease with heart failure; I50.9 Heart failure, unspecified; I87.2 Venous insufficiency (chronic) (peripheral); J43.9 Emphysema, unspecified; Z99.81 Dependence on supplemental oxygen; Z87.891 Personal history of nicotine dependence; Z98.41 Cataract extraction status, right eye; Z98.42 Cataract extraction status, left eye ==

== ENCOUNTER → 2022-06-12 | Outpatient (CLI) | payer OTHER | END | disposition home or self-care (01) | LOC: WOUNDCARE 01:01 | PROVIDERS: ATTEND Nurse Practitioner Family | DX: I70.238 Atherosclerosis of native arteries of right leg with ulceration of other part of lower leg (principal); L97.812 Non-pressure chronic ulcer of other part of right lower leg with fat layer exposed; L03.115 Cellulitis of right lower limb; I11.0 Hypertensive heart disease with heart failure; I50.9 Heart failure, unspecified; J43.9 Emphysema, unspecified; I87.2 Venous insufficiency (chronic) (peripheral); Z99.81 Dependence on supplemental oxygen; Z87.891 Personal history of nicotine dependence; Z98.41 Cataract extraction status, right eye; Z98.42 Cataract extraction status, left eye ==